=== PATIENT | female | born 1985 | race Two or more races ===

== ENCOUNTER 2021-04-28 09:16 | Inpatient (IN) | payer OTHER ==
[~2021-04-28] VITALS: Ht 162.6 cm; Wt 70.3 kg
[2021-04-28] MEDS ORDERED: PRENATAL TABLE1 EAC1 PO (10:24)
[2021-04-28] MEDS ORDERED: CHILDREN'S ASPI81 MG PO (10:25)
[2021-04-28] MEDS ORDERED: PEPCID AC20 MG PO (10:26)
== END 2021-04-29 12:11 | disposition home or self-care (01) | DRG 833 ==
LOC: LDR 09:16
PROVIDERS: ADMIT Obstetrics & Gynecology Maternal & Fetal Medicine; ATTEND Obstetrics & Gynecology Maternal & Fetal Medicine
PROC: BF42ZZZ Ultrasonography of Gallbladder (ICD-10-PCS; principal; 2021-04-28)
PROC: BT43ZZZ Ultrasonography of Bilateral Kidneys (ICD-10-PCS; 2021-04-28)
PROC: 4A1HXCZ Monitoring of Products of Conception, Cardiac Rate, External Approach (ICD-10-PCS; 2021-04-28)
DX: O26.892 Other specified pregnancy related conditions, second trimester (principal); R10.9 Unspecified abdominal pain; Z20.822 Contact with and (suspected) exposure to COVID-19; Z3A.19 19 weeks gestation of pregnancy

== ENCOUNTER 2021-06-14 15:15 | Inpatient (IN) | payer OTHER ==
[~2021-06-14] VITALS: Ht 162.6 cm; Wt 74.8 kg
[~2021-06-14 15:15] MED LIST: CHILDREN'S ASPI81 MG PO; PEPCID AC20 MG PO; PRENATAL TABLE1 EAC1 PO
[2021-06-17] MEDS ORDERED: NIFEDIPINE ER60 MG PO (11:50)
== END 2021-06-17 13:09 | disposition home or self-care (01) | DRG 833 ==
LOC: NST 15:15 → LDR 16:54 → OB/GYN 06-15 17:25
PROVIDERS: ADMIT Obstetrics & Gynecology Maternal & Fetal Medicine; ATTEND Obstetrics & Gynecology Maternal & Fetal Medicine
PROC: 4A1HXCZ Monitoring of Products of Conception, Cardiac Rate, External Approach (ICD-10-PCS; principal; 2021-06-14)
DX: O60.02 Preterm labor without delivery, second trimester (principal); O30.092 Twin pregnancy, unable to determine number of placenta and number of amniotic sacs, second trimester; Z3A.26 26 weeks gestation of pregnancy; Z20.822 Contact with and (suspected) exposure to COVID-19

== ENCOUNTER 2021-06-21 14:06 | Outpatient (CLI) | payer OTHER ==
[~2021-06-21 14:06] MED LIST changes: +NIFEDIPINE ER60 MG PO
== END 2021-06-21 15:21 | disposition home or self-care (01) ==
LOC: NST 14:06
PROVIDERS: ATTEND Obstetrics & Gynecology Maternal & Fetal Medicine
DX: Z34.82 Encounter for supervision of other normal pregnancy, second trimester (principal)

== ENCOUNTER 2021-07-04 07:51 | Outpatient (CLI) | payer OTHER | END 2021-07-04 08:25 | disposition home or self-care (01) | LOC: NST 07:51 | PROVIDERS: ATTEND Obstetrics & Gynecology Maternal & Fetal Medicine | DX: Z34.83 Encounter for supervision of other normal pregnancy, third trimester (principal) ==

== ENCOUNTER 2021-07-27 08:33 | Outpatient (CLI) | payer OTHER | END 2021-07-27 09:26 | disposition home or self-care (01) | LOC: NST 08:33 | PROVIDERS: ATTEND Obstetrics & Gynecology Maternal & Fetal Medicine | DX: Z34.83 Encounter for supervision of other normal pregnancy, third trimester (principal) ==

== ENCOUNTER 2021-08-23 12:00 | Inpatient (IN) | payer OTHER ==
[~2021-08-23] VITALS: Ht 162.6 cm; Wt 1.8 kg
[2021-08-30] MEDS ORDERED: NIFEDIPINE ER30 M1 (13:47)
[2021-08-30] MEDS ORDERED: FAMOTIDINE20 MG (13:48)
[2021-09-02] MEDS ORDERED: KETO10TA2 PO (10:12)
[2021-09-02] MEDS ORDERED: OXYC1TAB9 PO (10:12)
== END 2021-09-02 13:22 | disposition home or self-care (01) | DRG 785 ==
LOC: O/R 08-30 07:31 → OB/GYN 08-30 11:30 → SURG-SUITE 08-30 16:02
PROVIDERS: ADMIT Obstetrics & Gynecology Maternal & Fetal Medicine; ATTEND Obstetrics & Gynecology Maternal & Fetal Medicine
PROC: 0UB70ZZ Excision of Bilateral Fallopian Tubes, Open Approach (ICD-10-PCS; 2021-08-30)
PROC: 4A1HXCZ Monitoring of Products of Conception, Cardiac Rate, External Approach (ICD-10-PCS; 2021-08-30)
PROC: 10D00Z1 Extraction of Products of Conception, Low, Open Approach (ICD-10-PCS; principal; 2021-08-30 11:30)
DX: O30.043 Twin pregnancy, dichorionic/diamniotic, third trimester (principal); Z3A.37 37 weeks gestation of pregnancy; Z20.822 Contact with and (suspected) exposure to COVID-19; Z37.2 Twins, both liveborn; Z30.2 Encounter for sterilization

== ENCOUNTER 2022-03-12 15:30 | Outpatient (CLI) | payer OTHER ==
[~2022-03-12 15:30] MED LIST changes: +FAMOTIDINE20 MG; +KETO10TA2 PO; +NIFEDIPINE ER30 M1; +OXYC1TAB9 PO
== END 2022-03-12 15:40 | disposition home or self-care (01) ==
LOC: PPH VACUNA 15:30
PROVIDERS: ATTEND Emergency Medicine Pediatric Emergency Medicine
DX: Z23 Encounter for immunization (principal)

== ENCOUNTER 2022-03-12 15:35 | Outpatient (CLI) | payer OTHER | END 2022-03-12 15:45 | disposition home or self-care (01) | LOC: PPH VACUNA 15:35 | PROVIDERS: ATTEND Emergency Medicine Pediatric Emergency Medicine | DX: Z23 Encounter for immunization (principal) ==